=== PATIENT | female | born 2000 | race Caucasian/White ===

== ENCOUNTER 2022-04-10 09:43 | Outpatient (CLI) | payer BC, SELFPAY | END 2022-04-10 09:44 | disposition home or self-care (01) | LOC: LKVREF 04-14 14:40 | PROVIDERS: Visit Provider Family Medicine | DX: R35.89 Other polyuria (principal); N39.0 Urinary tract infection, site not specified; R30.0 Dysuria | CPT/HCPCS: 87086; 87186 ==